=== PATIENT | male | born 1950 | race Caucasian/White ===

== ENCOUNTER 2019-06-24 23:08 | Emergency (ER) | payer OTHER ==
[~2019-06-24] VITALS: Ht 182.9 cm; Wt 77.1 kg
[2019-06-24 23:28] LABS: ABSOLUTE NEUTROPHILS 11.3 thou/uL (1.4-8.2); BASOPHILS 0.3 % (0.0-2.0); EOSINOPHILS 0.9 % (0.0-3.0); HEMATOCRIT 34.1 % (42.0-52.0); HEMOGLOBIN 10.9 gm/dL (14.0-18.0); LYMPHOCYTES 9.2 % (24.0-44.0); MCH 28.9 pg (26.0-34.0); MCHC 31.9 g/dL (28.0-37.0); MCV 90.5 fL (80.0-100.0); MONOCYTES 10.5 % (1.0-8.0); PLATELET COUNT 271 thou/uL (150-400); POLYS 79.1 % (36.0-66.0); RBC 3.77 mil/uL (4.50-6.00); RDW 14.6 % (10.5-14.5); WBC 14.2 thou/uL (4.0-11.0)
[2019-06-24 23:32] LABS: URINE BILIRUBIN NEGATIVE (Negative); URINE BLOOD NEGATIVE (Negative); URINE CLARITY SL CLOUDY; URINE COLOR YELLOW; URINE GLUCOSE-RANDOM* NEGATIVE (Negative); URINE KETONES NEGATIVE (Negative); URINE LEUKOCYTES-REFLEX NEGATIVE (Negative); URINE NITRITE-REFLEX NEGATIVE (Negative); URINE PROTEIN (DIPSTICK) NEGATIVE (Negative); URINE SPECIFIC GRAVITY 1.015 (1.005-1.035)
[2019-06-24 23:33] LABS: CALCIUM 9.1 mg/dL (8.5-10.1); CREATININE 0.6 mg/dL (0.7-1.3); POTASSIUM 4.1 mmol/L (3.5-5.1)
[2019-06-24] MEDS ORDERED: POTASSIUM20 MEQ/15 PER TUBE (23:56)
[2019-06-24] MEDS ORDERED: KEPPRA100 MG/1 M PER TUBE (23:57)
[2019-06-24] MEDS ORDERED: NORVASC5 M1 PER TUBE (23:57)
[2019-06-24] MEDS ORDERED: CARVEDILOL12.5 MG PER TUBE (23:58)
[2019-06-24] MEDS ORDERED: PEPCID40 MG PER TUBE (23:59)
[2019-06-25] MEDS ORDERED: NF
[2019-06-25] MEDS ORDERED: TRANSDERM-SCOP1 EACH TRANSDERM (00:01)
[2019-06-25] MEDS ORDERED: CHLORHEXIDINE118 ML SWISH&SPIT (00:02)
[2019-06-25] MEDS ORDERED: ACETAMINOP325 MG/10. PER TUBE (00:03)
[2019-06-25] MEDS ORDERED: LEVOFLOXAC250 MG/10 PO (01:13)
[2019-06-25 01:44] VITALS: BP 104/57
== END 2019-06-25 02:25 | disposition home or self-care (01) ==
LOC: ER 23:08
PROVIDERS: Emergency Medicine
DX: J16.8 Pneumonia due to other specified infectious organisms (principal)

== ENCOUNTER 2019-12-14 06:02 | Emergency (ER) | payer OTHER ==
[~2019-12-14] VITALS: Ht 172.7 cm; Wt 83.0 kg
[~2019-12-14 06:02] MED LIST: ACETAMINOP325 MG/10. PER TUBE; CARVEDILOL12.5 MG PER TUBE; CHLORHEXIDINE118 ML SWISH&SPIT; KEPPRA100 MG/1 M PER TUBE; LEVOFLOXAC250 MG/10 PO; NF; NORVASC5 M1 PER TUBE; PEPCID40 MG PER TUBE; POTASSIUM20 MEQ/15 PER TUBE; TRANSDERM-SCOP1 EACH TRANSDERM
[2019-12-14 06:03] VITALS: BP 122/66
[2019-12-14] MEDS ORDERED: IPRAT-ALBUT 0.5-3 ML INH (07:43)
[2019-12-14] MEDS ORDERED: KEPPRA100 MG/1 M PER TUBE (07:45)
[2019-12-14 09:56] VITALS: BP 117/69
== END 2019-12-14 09:56 ==
LOC: ER 06:02 → EROBS 07:37
DX: J95.03 Malfunction of tracheostomy stoma (principal); I10 Essential (primary) hypertension; Z79.899 Other long term (current) drug therapy; Z86.73 Personal history of transient ischemic attack (TIA), and cerebral infarction without residual deficits; Y83.8 Other surgical procedures as the cause of abnormal reaction of the patient, or of later complication, without mention of misadventure at the time of the procedure; Y92.129 Unspecified place in nursing home as the place of occurrence of the external cause